=== PATIENT | female | born 1975 | race Caucasian/White ===

== ENCOUNTER 2019-10-02 08:29 | Inpatient (IN) ==
[2019-10-02] MEDS ORDERED: Piperacillin/Tazobactam 3.375 GM in Water for inj. (sterile) 20 ML IVP ONE (08:44)
[2019-10-02] MEDS ORDERED: Vancomycin 1,000 MG VIAL IVPB ONE (08:44)
[2019-10-02] MEDS ORDERED: 0.9 % Sodium Chloride 1,000 ML IVC ONE (08:44)
[2019-10-02] MEDS ORDERED: Isovue-370 500 ML BOTTLE IVP ONE (08:48)
[2019-10-02] MEDS ORDERED: 0.9 % Sodium Chloride 250 ML ONE (09:00)
[2019-10-02] MEDS ORDERED: 0.9 % Sodium Chloride 250 ML IVC ONE (09:02)
[2019-10-02 09:30] LABS: Basophils % 0.4 %; Eosinophils # 0.1 K/mcL (0.0-0.6); Eosinophils % 1.4 %; Hematocrit 41.9 % (35.3-44.9); Hemoglobin 13.7 g/dL (11.5-15.4); Immature Granulocytes % 0.5 % (0-4); Lymphocytes # 1.4 K/mcL (0.6-4.6); Mean Corpuscular HGB Conc 32.7 g/dL (31.6-35.5); Mean Corpuscular Hemoglobin 28.4 pg (28.0-33.3); Mean Corpuscular Volume 86.9 fL (83.0-100.0); Mean Platelet Volume 9.1 fL (9.4-12.4); Monocytes # 0.6 K/mcL (0.0-1.3); Platelet Count 278 K/mcL (140-400); Red Blood Count 4.82 M/mcL (3.82-4.97); Red Cell Distribution Width 13.2 % (11.5-14.5); Segmented Neutrophils % 76.7 %; White Blood Count 9.1 K/mcL (4.3-11.1)
[2019-10-02 09:46] LABS: Prothrombin Time 11.9 Seconds (9.4-12.1)
[2019-10-02 09:50] LABS: Acetaminophen < 10 mcg/mL (10-20); Alanine Aminotransferase 81 Units/L (7-52); Albumin 3.6 g/dL (3.5-5.7); Albumin/Globulin Ratio 0.9 (1.1-2.2); Alkaline Phosphatase 124 Units/L (34-104); Aspartate Amino Transferase 35 Units/L (13-39); BUN/Creatinine Ratio 9 (6-26); Bilirubin,Indirect 0.3 mg/dL (0.0-1.0); Bilirubin,Total 0.3 mg/dL (0.3-1.0); Blood Urea Nitrogen 7 mg/dL (6-20); Calcium 9.3 mg/dL (8.6-10.3); Carbon Dioxide 26 mEq/L (23-29); Chloride 105 mEq/L (98-107); Globulin 3.8 g/dL (2.4-3.5); Glucose 86 mg/dL (70-105); Osmolality,Calculated 283 (280-300); Potassium 3.2 mEq/L (3.5-5.1); Sodium 138 mEq/L (136-145); Total Protein 7.4 g/dL (6.4-8.9); eGFR For African Americans > 60 (> 60); eGFR For Non-African Americans > 60 (> 60)
[2019-10-02] MEDS ORDERED: Naloxone 0.4 MG/ML INJ IVP PRN (11:10)
[2019-10-02] MEDS ORDERED: Ondansetron 4 MG/2 ML VIAL IVP PRN (11:10)
[2019-10-02] MEDS ORDERED: Potassium Chloride Elixir 20 MEQ/15 ML UDC PO ONE (13:45)
[2019-10-02] MEDS: Ketorolac 15 MG/ML VIAL IVP PRN ×2 (14:08→21:18)
[2019-10-02] MEDS ORDERED: Acetaminophen IV 1,000 MG/100 ML INFUS..BTL IVPB ONE (17:01)
[2019-10-02] MEDS: *HR* Heparin 5,000 UNIT/ML VIAL SQ SCH (17:12)
[2019-10-02] MEDS: Piperacillin/Tazobactam 3.375 GM in 0.9 % Sodium Chloride Mini Bag 100 ML IVPB SCH (17:12)
[2019-10-02 23:14] LABS: Acinetobacter baumannii by PCR Not Detected (Not Detect); Candida albicans by PCR Not Detected (Not Detect); Candida glabrata by PCR Not Detected (Not Detect); Candida krusei by PCR Not Detected (Not Detect); Candida parapsilosis by PCR Not Detected (Not Detect); Candida tropicalis by PCR Not Detected (Not Detect); Enterobacter cloacae Cmplx PCR Not Detected (Not Detect); Enterobacteriaceae by PCR Not Detected (Not Detect); Enterococcus by PCR DETECTED (Not Detect); Escherichia coli by PCR Not Detected (Not Detect); Klebsiella oxytoca by PCR Not Detected (Not Detect); Klebsiella pneumoniae by PCR Not Detected (Not Detect); Proteus by PCR Not Detected (Not Detect); Pseudomonas aeruginosa by PCR Not Detected (Not Detect); Serratia marcescens by PCR Not Detected (Not Detect); Staphylococcus aureus by PCR Not Detected (Not Detect); Staphylococcus by PCR Not Detected (Not Detect); Streptococcus agalactiae(B)PCR Not Detected (Not Detect); Streptococcus by PCR Not Detected (Not Detect); Streptococcus pneumoniae PCR Not Detected (Not Detect); Streptococcus pyogenes (A) PCR Not Detected (Not Detect); vanA/B Vancomycin-Resist Genes Not Detected (Not Detect)
[2019-10-03] MEDS: Piperacillin/Tazobactam 3.375 GM in 0.9 % Sodium Chloride Mini Bag 100 ML IVPB SCH (00:45)
[2019-10-03] MEDS ORDERED: Acetaminophen IV 500 MG/50 ML INFUS..BTL IVPB ONE (01:29)
[2019-10-03 01:36] LABS: Basophils # 0.1 K/mcL (0.0-0.2); Basophils % 0.6 %; Eosinophils # 0.2 K/mcL (0.0-0.6); Hematocrit 35.6 % (35.3-44.9); Immature Granulocytes % 0.6 % (0-4); Lymphocytes # 2.9 K/mcL (0.6-4.6); Lymphocytes % 32.4 %; Mean Corpuscular HGB Conc 33.7 g/dL (31.6-35.5); Mean Corpuscular Hemoglobin 28.6 pg (28.0-33.3); Monocytes # 0.9 K/mcL (0.0-1.3); Monocytes % 10.3 %; Neutrophils # 4.8 K/mcL (1.6-8.9); Platelet Count 250 K/mcL (140-400); Red Blood Count 4.19 M/mcL (3.82-4.97); Red Cell Distribution Width 13.1 % (11.5-14.5); Segmented Neutrophils % 54.1 %; White Blood Count 8.8 K/mcL (4.3-11.1)
[2019-10-03 01:41] LABS: Prothrombin Time 11.5 Seconds (9.4-12.1)
[2019-10-03 01:49] LABS: BUN/Creatinine Ratio 10 (6-26); Blood Urea Nitrogen 7 mg/dL (6-20); Calcium 8.4 mg/dL (8.6-10.3); Carbon Dioxide 21 mEq/L (23-29); Chloride 110 mEq/L (98-107); Glucose 112 mg/dL (70-105); Osmolality,Calculated 285 (280-300); Potassium 4.1 mEq/L (3.5-5.1); Sodium 138 mEq/L (136-145); eGFR For African Americans > 60 (> 60); eGFR For Non-African Americans > 60 (> 60)
[2019-10-03] MEDS: Ketorolac 15 MG/ML VIAL IVP PRN (04:12)
[2019-10-03] MEDS: *HR* Heparin 5,000 UNIT/ML VIAL SQ SCH (07:36)
[2019-10-03] MEDS ORDERED: Lidocaine -MPF 2% 2 ML VIAL ONE (08:04)
[2019-10-03] MEDS ORDERED: Ondansetron 4 MG/2 ML VIAL ONE ×2 (08:04→09:42)
[2019-10-03] MEDS ORDERED: *HR* FentaNYL (PF) 100 MCG/2 ML VIAL ONE ×2 (08:04→09:35)
[2019-10-03] MEDS ORDERED: *HR* Propofol 200 MG/20 ML VIAL IVP ONE (08:04)
[2019-10-03] MEDS ORDERED: Dexamethasone 4 MG/ML VIAL ONE (08:04)
[2019-10-03] MEDS ORDERED: Ondansetron 4 MG/2 ML VIAL IVP ONE ×2 (08:38→10:47)
[2019-10-03] MEDS ORDERED: Ketorolac 30 MG/ML VIAL IVP ONE (08:38)
[2019-10-03] MEDS ORDERED: traMADol 50 MG TABLET PO PRN (08:38)
[2019-10-03] MEDS ORDERED: *HR* Promethazine 25 MG/ML VIAL IVP PRN ×2 (08:38→10:47)
[2019-10-03] MEDS ORDERED: *HR* HYDROmorphone (PF) 1 MG/ML SYRINGE IVP PRN (08:38)
[2019-10-03] MEDS ORDERED: Methadone Oral Concentrate 50 MG/5 ML UDC PO SCH ×2 (09:00→13:00)
[2019-10-03] MEDS ORDERED: Nicotine 21 MG PATCH.TD24 TD SCH (09:00)
[2019-10-03] MEDS ORDERED: *HR* Midazolam HCl 2 MG/2 ML VIAL ONE (09:10)
[2019-10-03] MEDS ORDERED: Ethanol\\Acetic Acid\\Na Ace\\Ben 1,000 ML IRRIG.SOLN IR ONE (09:15)
[2019-10-03] MEDS ORDERED: *HR* HYDROMORPHONE 2 MG/ML VIAL ONE (09:32)
[2019-10-03] MEDS ORDERED: ceFAZolin 2,000 MG in Water for inj. (sterile) 20 ML IVP ONE (09:32)
[2019-10-03] MEDS ORDERED: Ketorolac 30 MG/ML VIAL ONE (09:42)
[2019-10-03] MEDS ORDERED: Naloxone 0.4 MG/ML INJ IVP PRN (10:47)
[2019-10-03] MEDS ORDERED: Ringers Solution, Lactated 1,000 ML IVC SCH (10:47)
[2019-10-03] MEDS ORDERED: MOM Conc 10 ML UD.LIQ PO PRN (10:47)
[2019-10-03] MEDS ORDERED: Sennosides 8.6 MG TABLET PO PRN (10:47)
[2019-10-03] MEDS ORDERED: Ondansetron 4 MG/2 ML VIAL IVP PRN ×2 (10:47)
[2019-10-03] MEDS ORDERED: Ketorolac 15 MG/ML VIAL IVP PRN (10:47)
[2019-10-03] MEDS ORDERED: Temazepam 15 MG CAPSULE PO PRN (10:47)
[2019-10-03] MEDS ORDERED: Piperacillin/Tazobactam 3.375 GM in 0.9 % Sodium Chloride Mini Bag 100 ML IVPB SCH (16:00)
[2019-10-03] MEDS ORDERED: Aminoglycoside Consult 1 EACH MC ONE (16:19)
[2019-10-03 16:37] VITALS: BP 116/79
[2019-10-04] MEDS ORDERED: Nicotine 21 MG PATCH.TD24 TD SCH (09:00)
== END 2019-10-03 16:20 | disposition left against medical advice (07) | DRG 501 ==
LOC: 3NENU 08:29 → EMEROOARM 08:29 → 3NENU 12:37 → SUATTDRO 13:19
PROVIDERS: ADMIT Internal Medicine; ATTEND Internal Medicine

== ENCOUNTER 2019-10-05 12:55 | Inpatient (IN) ==
[2019-10-05 16:17] LABS: Basophils # 0.1 K/mcL (0.0-0.2); Basophils % 0.8 %; Eosinophils # 0.1 K/mcL (0.0-0.6); Eosinophils % 1.2 %; Hematocrit 36.4 % (35.3-44.9); Hemoglobin 12.1 g/dL (11.5-15.4); Immature Granulocytes % 0.7 % (0-4); Lymphocytes # 3.3 K/mcL (0.6-4.6); Mean Corpuscular HGB Conc 33.2 g/dL (31.6-35.5); Mean Corpuscular Hemoglobin 28.5 pg (28.0-33.3); Mean Corpuscular Volume 85.6 fL (83.0-100.0); Mean Platelet Volume 8.2 fL (9.4-12.4); Monocytes # 0.6 K/mcL (0.0-1.3); Monocytes % 6.8 %; Neutrophils # 4.8 K/mcL (1.6-8.9); Platelet Count 439 K/mcL (140-400); Red Blood Count 4.25 M/mcL (3.82-4.97); Red Cell Distribution Width 13.5 % (11.5-14.5); Segmented Neutrophils % 53.5 %; White Blood Count 8.9 K/mcL (4.3-11.1)
[2019-10-05 16:34] LABS: BUN/Creatinine Ratio 16 (6-26); Blood Urea Nitrogen 13 mg/dL (6-20); Carbon Dioxide 25 mEq/L (23-29); Chloride 108 mEq/L (98-107); Glucose 120 mg/dL (70-105); Osmolality,Calculated 295 (280-300); Potassium 3.2 mEq/L (3.5-5.1); Sodium 142 mEq/L (136-145); eGFR For African Americans > 60 (> 60); eGFR For Non-African Americans > 60 (> 60)
[2019-10-05] MEDS ORDERED: Naloxone 0.4 MG/ML INJ IVP PRN (17:56)
[2019-10-05 19:38] LABS: Amphetamine Screen,Urine Positive ng/mL (Cutoff=1000); Barbiturate Screen,Urine Negative ng/mL (Cutoff=200); Benzodiazepines Screen,Urine Negative ng/mL (Cutoff=200); Cannabinoid Screen,Urine Negative ng/mL (Cutoff = 50); Cocaine Screen,Urine Negative ng/mL (Cutoff= 300); Opiate Screen,Urine Positive ng/mL (Cutoff=300); Phencyclidine Screen,Urine Negative ng/mL (Cutoff=25)
[2019-10-05] MEDS ORDERED: Ampicillin 2 GM in 0.9 % Sodium Chloride Mini Bag 100 ML IVPB SCH (20:00)
[2019-10-05] MEDS ORDERED: Ketorolac 15 MG/ML VIAL IVP ONE (20:19)
[2019-10-05] MEDS: Lactobacillus 1 EACH CAP.SPRINK PO SCH (20:44)
[2019-10-05] MEDS: Ampicillin 2 GM in 0.9 % Sodium Chloride Mini Bag 100 ML IVPB SCH ×2 (20:44→23:33)
[2019-10-05] MEDS: Nicotine 21 MG PATCH.TD24 TD SCH (22:48)
[2019-10-06] MEDS: Ampicillin 2 GM in 0.9 % Sodium Chloride Mini Bag 100 ML IVPB SCH ×5 (03:42→20:17)
[2019-10-06 07:06] LABS: BUN/Creatinine Ratio 16 (6-26); Blood Urea Nitrogen 12 mg/dL (6-20); Calcium 8.2 mg/dL (8.6-10.3); Carbon Dioxide 26 mEq/L (23-29); Chloride 111 mEq/L (98-107); Glucose 80 mg/dL (70-105); Osmolality,Calculated 301 (280-300); Potassium 3.5 mEq/L (3.5-5.1); Sodium 146 mEq/L (136-145); eGFR For African Americans > 60 (> 60); eGFR For Non-African Americans > 60 (> 60)
[2019-10-06 07:25] LABS: Basophils % 0.6 %; Eosinophils # 0.2 K/mcL (0.0-0.6); Eosinophils % 3.8 %; Hematocrit 32.4 % (35.3-44.9); Hemoglobin 10.6 g/dL (11.5-15.4); Immature Granulocytes % 0.3 % (0-4); Lymphocytes # 2.8 K/mcL (0.6-4.6); Lymphocytes % 43.3 %; Mean Corpuscular HGB Conc 32.7 g/dL (31.6-35.5); Mean Corpuscular Hemoglobin 28.6 pg (28.0-33.3); Mean Corpuscular Volume 87.3 fL (83.0-100.0); Mean Platelet Volume 10.1 fL (9.4-12.4); Monocytes # 0.5 K/mcL (0.0-1.3); Monocytes % 8.2 %; Neutrophils # 2.8 K/mcL (1.6-8.9); Nucleated Red Blood Cells 0.3 /100 WBC (0); Platelet Count 235 K/mcL (140-400); Red Blood Count 3.71 M/mcL (3.82-4.97); Red Cell Distribution Width 13.5 % (11.5-14.5); Segmented Neutrophils % 43.8 %; White Blood Count 6.4 K/mcL (4.3-11.1)
[2019-10-06] MEDS: Methadone Oral Concentrate 50 MG/5 ML UDC PO SCH (09:00)
[2019-10-06] MEDS: Lactobacillus 1 EACH CAP.SPRINK PO SCH ×2 (09:02→20:17)
[2019-10-06] MEDS: Nicotine 21 MG PATCH.TD24 TD SCH (09:03)
[2019-10-06] MEDS ORDERED: *HR* LORazepam 0.5 MG TABLET PO ONE (13:34)
[2019-10-06] MEDS ORDERED: cefTRIAXone 2,000 MG in 0.9 % Sodium Chloride Mini Bag 100 ML IVPB SCH (14:00)
[2019-10-06] MEDS ORDERED: *HR* LORazepam 2 MG/ML VIAL IVP ONE (16:34)
[2019-10-06] MEDS ORDERED: *HR* Heparin 5,000 UNIT/ML VIAL SQ SCH (18:00)
[2019-10-07] MEDS: Ampicillin 2 GM in 0.9 % Sodium Chloride Mini Bag 100 ML IVPB SCH ×5 (02:23→17:30)
[2019-10-07 06:20] LABS: Basophils # 0.1 K/mcL (0.0-0.2); Basophils % 1.1 %; Eosinophils # 0.6 K/mcL (0.0-0.6); Eosinophils % 6.6 %; Hematocrit 34.8 % (35.3-44.9); Hemoglobin 11.7 g/dL (11.5-15.4); Immature Granulocytes % 0.6 % (0-4); Lymphocytes # 3.9 K/mcL (0.6-4.6); Lymphocytes % 44.7 %; Mean Corpuscular HGB Conc 33.6 g/dL (31.6-35.5); Mean Corpuscular Hemoglobin 28.5 pg (28.0-33.3); Mean Corpuscular Volume 84.7 fL (83.0-100.0); Mean Platelet Volume 9.1 fL (9.4-12.4); Monocytes # 0.8 K/mcL (0.0-1.3); Monocytes % 8.7 %; Neutrophils # 3.3 K/mcL (1.6-8.9); Platelet Count 384 K/mcL (140-400); Red Blood Count 4.11 M/mcL (3.82-4.97); Red Cell Distribution Width 13.3 % (11.5-14.5); Segmented Neutrophils % 38.3 %; White Blood Count 8.7 K/mcL (4.3-11.1)
[2019-10-07 06:26] LABS: BUN/Creatinine Ratio 13 (6-26); Blood Urea Nitrogen 9 mg/dL (6-20); Calcium 8.5 mg/dL (8.6-10.3); Carbon Dioxide 25 mEq/L (23-29); Chloride 107 mEq/L (98-107); Glucose 80 mg/dL (70-105); Osmolality,Calculated 292 (280-300); Potassium 4.3 mEq/L (3.5-5.1); Sodium 142 mEq/L (136-145); eGFR For African Americans > 60 (> 60); eGFR For Non-African Americans > 60 (> 60)
[2019-10-07] MEDS ORDERED: cefTRIAXone 2,000 MG in 0.9 % Sodium Chloride Mini Bag 100 ML IVPB SCH (09:00)
[2019-10-07] MEDS ORDERED: Lidocaine Viscous Oral Soln 15 ML SOLUTION MM PRN (09:43)
[2019-10-07] MEDS ORDERED: 0.9 % Sodium Chloride 500 ML IVC ONE (09:44)
[2019-10-07] MEDS: *HR* FentaNYL (PF) 100 MCG/2 ML VIAL IVP PRN ×2 (10:25→10:30)
[2019-10-07] MEDS: *HR* Midazolam HCl 5 MG/5 ML VIAL IVP PRN ×3 (10:25→10:40)
[2019-10-07] MEDS: Nicotine 21 MG PATCH.TD24 TD SCH (11:52)
[2019-10-07] MEDS: Lactobacillus 1 EACH CAP.SPRINK PO SCH (11:52)
[2019-10-07] MEDS: Methadone Oral Concentrate 50 MG/5 ML UDC PO SCH (11:55)
[2019-10-07] MEDS ORDERED: *HR* LORazepam 2 MG/ML VIAL IVP ONE (12:38)
[2019-10-07 16:08] VITALS: BP 121/75
== END 2019-10-07 18:33 | disposition short-term general hospital (02) | DRG 289 ==
LOC: CDU 12:55 → EMEROOARM 12:55 → SUATTDRO 16:49 → 2ANU 18:19
PROVIDERS: ADMIT Internal Medicine; ATTEND Student in an Organized Health Care Education/Training Program